=== PATIENT | male | born 1945 | race Asian ===

== ENCOUNTER 2025-08-09 12:57 | Emergency (ER) | payer MEDICARE, SELFPAY ==
[2025-08-09 13:03] VITALS: BP 180/87; PULSE 62; RESP 18; TEMP 36.3; O2SAT 96; BMI 26.2
--- NOTE | 2025-08-09 13:09 | DI.RAD.S_ITS ---
PROCEDURE: XR KNEE RT 3V INDICATIONS: knee pain TECHNIQUE: 3 views of the knee were acquired. COMPARISON: None. FINDINGS: Bones: No fractures or dislocations. No suspicious bony lesions. Soft tissues: No joint effusion. No suspicious soft tissue calcifications. IMPRESSION: No acute bony abnormality or significant effusion. Dictated by: Hoang Weaver M.D. on 08/09/2025 at 13:45 Approved by: Hoang Weaver M.D. on 08/09/2025 at 13:45
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
== END 2025-08-09 15:30 | disposition home or self-care (01) ==
PROVIDERS: Emergency Provider Student in an Organized Health Care Education/Training Program
DX: M25.561 Pain in right knee (principal); X50.1XXA Overexertion from prolonged static or awkward postures, initial encounter
CPT/HCPCS: 73562; 99281; 99283